=== PATIENT | female | born 1985 | race Caucasian/White ===

== ENCOUNTER 2020-08-16 06:01 | Inpatient (IN) ==
[~2020-08-16 06:01] MED LIST: Buffered Lidocaine 1% SYRIN 1 ml INTRADERM ONE; Lactated Ringers 1000 ml BAG 1,000 ML IV SCH; Sodium Citrate/Citric Acid LIQ 15 ML UDC PO ONE
[2020-08-16] MEDS ORDERED: Buffered Lidocaine 1% SYRIN 1 ml INTRADERM ONE (07:03)
[2020-08-16] MEDS ORDERED: ceFOXitin 2 GM IVPREMIX 2 GM/50 ML BAG IVPB ONE (07:03)
[2020-08-16] MEDS ORDERED: ceFOXitin 2 GM IVPREMIX 2 GM/50 ML BAG ONE (07:20)
[2020-08-16] MEDS ORDERED: Phenylephrine 40 mcg/mL 10mL (400mcg) SYRINGE ONE (07:28)
[2020-08-16] MEDS ORDERED: Morphine PF AMP (0.5MG/ML) 5 MG/10 ML AMP ONE (07:28)
[2020-08-16] MEDS ORDERED: DiMENhydriNATE IV 50 mg/ml 1 ml VIAL IV PUSH PRN (07:54)
[2020-08-16] MEDS ORDERED: Naloxone 0.4 mg VIAL 0.4 mg/ml 1 ml VIAL IV PRN ×2 (07:54→07:56)
[2020-08-16] MEDS ORDERED: Ondansetron 4 mg VIAL 2 MG/ML 2 ml VIAL IV PRN (07:56)
[2020-08-16] MEDS ORDERED: oxyCODONE/Acetamin 5/325 mg TAB PO PRN ×2 (07:56→07:58)
[2020-08-16] MEDS ORDERED: Lactated Ringers 1000 ml BAG 1,000 ML IV SCH ×2 (08:00→10:00)
[2020-08-16 08:14] LABS: Urine Benzodiazepine Screen None Detected (None Detect); Urine Cannabinoids Screen None Detected (None Detect); Urine Opiates Screen None Detected (None Detect)
[2020-08-16] MEDS ORDERED: Lidocaine 0.5% SDV 50 ML VIAL ONE (08:32)
[2020-08-16] MEDS ORDERED: Oxytocin 10 UNITS/ML 1 ML VIAL ONE ×2 (08:41→08:57)
[2020-08-16] MEDS ORDERED: Ondansetron 4 mg VIAL 2 MG/ML 2 ml VIAL ONE (08:41)
[2020-08-16] MEDS ORDERED: fentaNYL 100 mcg/2 ml 50 MCG/ML VIAL IV SLOW PU PRN (09:24)
[2020-08-16] MEDS ORDERED: Dibucaine 1% OINT 28.35 GM TUBE PR PRN (09:59)
[2020-08-16] MEDS ORDERED: Witch Hazel PAD JAR TOPICAL PRN (09:59)
[2020-08-16] MEDS ORDERED: Glycerin ADULT 2.4 gm SUPP PR PRN (09:59)
[2020-08-16 10:50] LABS: Urine Appearance Clear; Urine Bilirubin Negative (Negative); Urine Blood Negative (Negative); Urine Color Yellow; Urine Glucose Negative (Negative); Urine Ketones Negative (Negative); Urine Nitrite Negative (Negative); Urine Protein Negative (Negative); Urine Urobilinogen Negative (Negative)
[2020-08-17 07:33] LABS: ABS Eosinophils 0.1 10^3/ul (0-0.6); ABS Lymphocytes 1.2 10^3/ul (1.0-4.8); ABS Monocytes 0.7 10^3/ul (0-0.8); ABS Neutrophils 7.9 10^3/ul (1.5-7.7); Eosinophil % 0.9 %; Hematocrit 29 % (35-47); Lymphocyte % 11.9 %; Mean Corpuscular HGB Conc 34 g/dL (31-36); Mean Corpuscular Hemoglobin 30 pg (27-31); Mean Corpuscular Volume 87 fL (80-97); Mean Platelet Volume 7.3 fL (7.4-10.4); Platelet Count 200 10^3/uL (150-450); Red Blood Count 3.37 10^6 /uL (3.70-4.87); Red Cell Distribution Width 14 % (10-15); White Blood Count 9.9 10^3/uL (3.5-10.8)
[2020-08-18 08:09] VITALS: BP 108/47
[2020-08-19] MEDS ORDERED: Scopolamine PATCH Remove NOTE PATCH OFF SCH (07:30)
== END 2020-08-18 15:58 | disposition home or self-care (01) | DRG 540 ==
LOC: MCHOB 06:01
PROVIDERS: ADMIT Obstetrics & Gynecology; ATTEND Obstetrics & Gynecology